=== PATIENT | female | born 1965 | race Caucasian/White ===

== ENCOUNTER 2016-12-07 10:42 | Day surgery (SDC) | payer OTHER ==
[2016-12-05 09:37] LABS: HEMATOCRIT 24.4 % (34.6-47.8); WHITE BLOOD COUNT 5.3 x10^3/uL (3.4-10)
[~2016-12-07] VITALS: Ht 162.6 cm; Wt 56.2 kg
[~2016-12-07 10:42] MED LIST: LOPE1LIQ6 PO
[2016-12-07 11:05] VITALS: BP 137/82
[2016-12-07] MEDS ORDERED: LACTATED RINGERS 1,000 ML IV SCH (11:08)
[2016-12-07] MEDS ORDERED: LIDOCAINE 1%, 2ML SQ PRN (11:30)
[2016-12-07 11:48] LABS: HEMATOCRIT 23.8 % (34.6-47.8); HEMOGLOBIN 7.8 g/dL (11.7-16.4); WHITE BLOOD COUNT 4.6 x10^3/uL (3.4-10)
[2016-12-07 11:56] LABS: BLOOD UREA NITROGEN 52 mg/dL (7-18)
[2016-12-07] MEDS ORDERED: MIDAZOLAM 1 MG/ML, 2ML ONE (12:44)
[2016-12-07] MEDS ORDERED: hydrALAzine 20 MG/ML, 1ML IV PRN (13:00)
[2016-12-07] MEDS ORDERED: ACETAMINOPHEN 325 MG TABLET PO PRN (13:00)
[2016-12-07] MEDS ORDERED: LABETALOL 5MG/ML, 20ML IV PRN (13:00)
[2016-12-07] MEDS ORDERED: MEPERIDINE/PF 25MG/0.5ML IVPush PRN (13:00)
[2016-12-07] MEDS ORDERED: OXYcodone 5 MG/5 ML ORAL.SOL UDC PO PRN (13:00)
[2016-12-07] MEDS ORDERED: METOPROLOL 1 MG/ML, 5ML IV PRN (13:00)
[2016-12-07] MEDS ORDERED: PROMETHAZINE 25 MG/ML, 1ML IV PRN (13:00)
[2016-12-07] MEDS ORDERED: ALBUTEROL SULFATE 2.5 MG/3 ML NPPB PRN (13:00)
[2016-12-07] MEDS ORDERED: EPHEDRINE 50 MG/ML, 1ML IVPush PRN (13:00)
[2016-12-07] MEDS ORDERED: HYDROcodone/APAP 7.5-325MG/15ML UDC PO PRN (13:00)
[2016-12-07] MEDS ORDERED: METOCLOPRAMIDE 5 MG/ML, 2ML IV PRN (13:00)
[2016-12-07] MEDS ORDERED: ONDANSETRON 2MG/ML, 2ML IVPush PRN (13:00)
[2016-12-07] MEDS ORDERED: FENTANYL PF 100 MCG/2ML ONE (13:17)
[2016-12-07] MEDS: FENTANYL PF 100 MCG/2ML IV PRN ×2 (13:21→13:26)
[2016-12-07] MEDS ORDERED: HYDROmorphone 1 MG/ML, 1ML ONE (13:35)
[2016-12-07] MEDS: HYDROmorphone 1 MG/ML, 1ML IV PRN ×2 (13:36→13:41)
== END 2016-12-07 14:30 ==
LOC: OR 10:42 → MERGE 12:30 → OR 14:30
PROVIDERS: ATTEND Internal Medicine Geriatric Medicine
DX: I99.8 Other disorder of circulatory system (principal); K62.89 Other specified diseases of anus and rectum; C53.9 Malignant neoplasm of cervix uteri, unspecified; Z88.1 Allergy status to other antibiotic agents
CPT/HCPCS: 36415; 45334; 80048; 85025; J1170; J2250; J3010

== ENCOUNTER 2017-01-17 11:20 | Day surgery (SDC) | payer OTHER ==
[~2017-01-17] VITALS: Ht 162.6 cm; Wt 54.1 kg
[2017-01-17] MEDS ORDERED: OXYC-302 PO (12:06)
[2017-01-17] MEDS ORDERED: ZOLP-413 PO (12:06)
[2017-01-17] MEDS ORDERED: TRAM50TA2 PO (12:06)
[2017-01-17 12:09] VITALS: BP 122/78
[2017-01-17] MEDS ORDERED: LACTATED RINGERS 1,000 ML IV SCH (12:17)
[2017-01-17] MEDS ORDERED: PROPOFOL 10 MG/ML, 20ML ONE (14:18)
[2017-01-17] MEDS ORDERED: MIDAZOLAM 1 MG/ML, 2ML ONE ×2 (14:20→14:23)
[2017-01-17] MEDS ORDERED: hydrALAzine 20 MG/ML, 1ML IV PRN (14:30)
[2017-01-17] MEDS ORDERED: MIDAZOLAM 1 MG/ML, 2ML IV PRN (14:30)
[2017-01-17] MEDS ORDERED: EPHEDRINE 50 MG/ML, 1ML IVPush PRN (14:30)
[2017-01-17] MEDS ORDERED: MEPERIDINE/PF 25MG/0.5ML IVPush PRN (14:30)
[2017-01-17] MEDS ORDERED: KETOROLAC 30 MG/1 ML IV PRN (14:30)
[2017-01-17] MEDS ORDERED: HYDROcodone/APAP 7.5-325MG/15ML UDC PO PRN (14:30)
[2017-01-17] MEDS ORDERED: LABETALOL 5MG/ML, 20ML IV PRN (14:30)
[2017-01-17] MEDS ORDERED: ALBUTEROL SULFATE 2.5 MG/3 ML NPPB PRN (14:30)
[2017-01-17] MEDS ORDERED: METOPROLOL 1 MG/ML, 5ML IV PRN (14:30)
[2017-01-17] MEDS ORDERED: OXYcodone 5 MG/5 ML ORAL.SOL UDC PO PRN (14:30)
[2017-01-17] MEDS ORDERED: HYDROmorphone 1 MG/ML, 1ML IV PRN (14:30)
[2017-01-17] MEDS ORDERED: ACETAMINOPHEN 325 MG TABLET PO PRN (14:30)
[2017-01-17] MEDS ORDERED: ONDANSETRON 2MG/ML, 2ML IVPush PRN (14:30)
[2017-01-17] MEDS ORDERED: FENTANYL PF 100 MCG/2ML ONE ×3 (14:32→15:29)
[2017-01-17] MEDS: FENTANYL PF 100 MCG/2ML IV PRN ×2 (14:59→15:30)
[2017-01-17] MEDS ORDERED: ACETAMINOPHEN 650 MG/20.3 ML UDC ONE (15:06)
[2017-01-17] MEDS ORDERED: OXYcodone 5 MG/5 ML ORAL.SOL UDC ONE (15:06)
[2017-01-17] MEDS ORDERED: KETOROLAC 30 MG/1 ML ONE (15:06)
== END 2017-01-17 16:25 | disposition home or self-care (01) ==
LOC: OUT 11:20
PROVIDERS: ATTEND Internal Medicine Geriatric Medicine
DX: K62.7 Radiation proctitis (principal); F41.9 Anxiety disorder, unspecified; Z85.41 Personal history of malignant neoplasm of cervix uteri
CPT/HCPCS: 45346; J1885; J2250; J2704; J3010; J7120

== ENCOUNTER 2017-03-28 08:44 | Day surgery (SDC) | payer OTHER ==
[~2017-03-28] VITALS: Ht 162.6 cm; Wt 55.0 kg
[~2017-03-28 08:44] MED LIST changes: +OXYC-302 PO; +TRAM50TA2 PO; +ZOLP-413 PO
[2017-03-28 09:31] VITALS: BP 115/77
[2017-03-28] MEDS ORDERED: LACTATED RINGERS 1,000 ML IV SCH (09:45)
[2017-03-28] MEDS ORDERED: PROPOFOL 10 MG/ML, 20ML ONE (10:49)
[2017-03-28] MEDS ORDERED: MIDAZOLAM 1 MG/ML, 2ML ONE (10:54)
[2017-03-28] MEDS ORDERED: FENTANYL PF 100 MCG/2ML ONE ×2 (10:56→11:42)
[2017-03-28] MEDS ORDERED: METOPROLOL 1 MG/ML, 5ML IV PRN (11:00)
[2017-03-28] MEDS ORDERED: LABETALOL 5MG/ML, 20ML IV PRN (11:00)
[2017-03-28] MEDS ORDERED: OXYcodone 5 MG/5 ML ORAL.SOL UDC PO PRN (11:00)
[2017-03-28] MEDS ORDERED: ACETAMINOPHEN 325 MG TABLET PO PRN (11:00)
[2017-03-28] MEDS ORDERED: HYDROmorphone 1 MG/ML, 1ML IV PRN (11:00)
[2017-03-28] MEDS ORDERED: hydrALAzine 20 MG/ML, 1ML IV PRN (11:00)
[2017-03-28] MEDS ORDERED: METOCLOPRAMIDE 5 MG/ML, 2ML IV PRN (11:00)
[2017-03-28] MEDS ORDERED: PROMETHAZINE 25 MG/ML, 1ML IV PRN (11:00)
[2017-03-28] MEDS ORDERED: HYDROcodone/APAP 7.5-325MG/15ML UDC PO PRN (11:00)
[2017-03-28] MEDS ORDERED: ALBUTEROL SULFATE 2.5 MG/3 ML NPPB PRN (11:00)
[2017-03-28] MEDS ORDERED: EPHEDRINE 50 MG/ML, 1ML IVPush PRN (11:00)
[2017-03-28] MEDS ORDERED: ONDANSETRON 2MG/ML, 2ML IVPush PRN (11:00)
[2017-03-28] MEDS ORDERED: MIDAZOLAM 1 MG/ML, 2ML IV PRN (11:00)
[2017-03-28] MEDS ORDERED: MEPERIDINE/PF 25MG/0.5ML IVPush PRN (11:00)
[2017-03-28] MEDS ORDERED: OXYcodone 5 MG/5 ML ORAL.SOL UDC ONE (11:43)
[2017-03-28] MEDS: FENTANYL PF 100 MCG/2ML IV PRN ×2 (11:45→11:55)
[2017-03-28] MEDS ORDERED: HYDROmorphone 2 MG/ML, 1ML ONE (11:54)
== END 2017-03-28 13:20 ==
LOC: OUT 08:44
PROVIDERS: ATTEND Internal Medicine
DX: K62.7 Radiation proctitis (principal); K62.89 Other specified diseases of anus and rectum; Z85.41 Personal history of malignant neoplasm of cervix uteri
CPT/HCPCS: 45331; 45334; 88305; J1170; J2250; J2704; J3010; J7120